=== PATIENT | male | born 1975 | race Hispanic/Latino ===

== ENCOUNTER 2017-02-28 13:11 | Emergency (ER) | payer SELFPAY ==
[2017-02-28] MEDS ORDERED: IBUPROFEN 600 MG TABLET ONE (13:50)
[2017-02-28 14:04] LABS: RAPID GROUP A STREP NEGATIVE (NEGATIVE)
== END 2017-02-28 14:19 | disposition home or self-care (01) ==
LOC: EDH 13:11
DX: J10.1 Influenza due to other identified influenza virus with other respiratory manifestations (principal); Z72.0 Tobacco use
CPT/HCPCS: 87804; 87880

== ENCOUNTER 2018-04-07 17:09 | Emergency (ER) | payer SELFPAY ==
[2018-04-07] MEDS ORDERED: KETOROLAC TROMETHAMINE 30MG/ML ONE (18:30)
== END 2018-04-07 19:17 | disposition home or self-care (01) ==
LOC: EDH 17:09
DX: S92.344A Nondisplaced fracture of fourth metatarsal bone, right foot, initial encounter for closed fracture (principal); W11.XXXA Fall on and from ladder, initial encounter; Y93.89 Activity, other specified; Y92.69 Other specified industrial and construction area as the place of occurrence of the external cause; Y99.8 Other external cause status
CPT/HCPCS: 29515; 73610; 73630; 96372; 99283; J1885

== ENCOUNTER 2018-04-08 08:31 | Emergency (ER) | payer SELFPAY ==
[2018-04-08] MEDS ORDERED: KETOROLAC TROMETHAMINE 60 MG/2 ML VIAL ONE (09:12)
[2018-04-08] MEDS ORDERED: CYCLOBENZAPRINE HCL 10 MG TABLET ONE (09:12)
== END 2018-04-08 09:57 | disposition home or self-care (01) ==
LOC: EDH 08:31
DX: S93.491A Sprain of other ligament of right ankle, initial encounter (principal); W18.39XA Other fall on same level, initial encounter; Y93.89 Activity, other specified; Y92.89 Other specified places as the place of occurrence of the external cause; Y99.8 Other external cause status
CPT/HCPCS: 96372; 99283; J1885

== ENCOUNTER 2018-09-25 01:27 | Emergency (ER) | payer OTHER ==
[2018-09-25] MEDS ORDERED: HYDROCODONE/ACETAMINOPHEN 5/325 MG TAB ONE (01:59)
[2018-09-25] MEDS ORDERED: PENICILLIN V POTASSIUM 500 MG TABLET ONE (01:59)
[2018-09-25] MEDS ORDERED: KETOROLAC TROMETHAMINE 60 MG/2 ML VIAL ONE (01:59)
== END 2018-09-25 02:27 | disposition home or self-care (01) ==
LOC: EDH 01:27
DX: K08.89 Other specified disorders of teeth and supporting structures (principal); Z72.0 Tobacco use
CPT/HCPCS: 96372; 99283; J1885

== ENCOUNTER 2018-11-27 04:34 | Emergency (ER) | payer SELFPAY ==
[2018-11-27 05:10] LABS: EOSINOPHILS % (AUTO) 0.2 % (0.0-8.0); HEMATOCRIT 39.4 % (42-54); LYMPHOCYTES % (AUTO) 19.6 % (21.0-51.0); MEAN CORPUSCULAR HEMOGLOBIN 30.9 pg (27.0-33.0); MEAN CORPUSCULAR VOLUME 88.3 fL (79-99); MONOCYTES % (AUTO) 7.2 % (3.0-13.0); PLATELET COUNT (AUTO) 215 K/uL (130-400); RED BLOOD CELL COUNT(AUTO) 4.46 MIL/uL (4.50-6.20); RED CELL DISTRIBUTION WIDTH 13.5 % (11.0-15.5); WHITE BLOOD COUNT (AUTO) 7.9 K/uL (4.8-10.8)
[2018-11-27 05:27] LABS: CREATININE 1.1 mg/dL (0.5-1.5); POTASSIUM 3.5 mmol/L (3.5-5.1)
[2018-11-27 05:32] LABS: ALBUMIN 3.2 g/dL (3.5-5.0); BILIRUBIN,TOTAL 0.5 mg/dL (0.2-1.0); TOTAL PROTEIN, SERUM 7.6 g/dL (6.0-8.3)
== END 2018-11-27 06:06 | disposition home or self-care (01) ==
LOC: EDH 04:34
DX: R50.9 Fever, unspecified (principal)
CPT/HCPCS: 36415; 80053; 83605; 85025; 87040; 87804

== ENCOUNTER 2018-12-01 09:02 | Emergency (ER) | payer SELFPAY ==
[2018-12-01] MEDS ORDERED: METHYLPREDNISOLONE SOD SUCC 125MG/2ML VIAL ONE (09:25)
[2018-12-01] MEDS ORDERED: DiphenhydrAMINE HCL 50 MG/ML VIAL ONE (09:25)
[2018-12-01] MEDS ORDERED: FAMOTIDINE/PF 20 MG/2 ML VIAL IV ONE (09:25)
== END 2018-12-01 10:39 | disposition home or self-care (01) ==
LOC: EDH 09:02
DX: T78.49XA Other allergy, initial encounter (principal); Z72.0 Tobacco use; X58.XXXA Exposure to other specified factors, initial encounter
CPT/HCPCS: 96374; 96375; 99284; J1200; J2930; J3490

== ENCOUNTER 2020-03-09 14:34 | Emergency (ER) | payer OTHER ==
[2020-03-09] MEDS ORDERED: LEVOFLOXACIN 500 MG/D5W 100 ML 100 ML ONE (15:03)
[2020-03-09] MEDS ORDERED: 0.9%NACL 1000ML 1,000 ML IV ONE (15:03)
[2020-03-09] MEDS ORDERED: ONDANSETRON 4MG INJ ONE (15:03)
[2020-03-09] MEDS ORDERED: ACETAMINOPHEN 325 MG TAB ONE (15:03)
[2020-03-09] MEDS ORDERED: ZOSYN 3.375GM+NS 50ML 50 ML IV ONE (15:03)
[2020-03-09 15:31] LABS: BASOPHILS % (AUTO) 0.4 % (0.0-5.0); EOSINOPHILS % (AUTO) 0.6 % (0.0-8.0); HEMATOCRIT 49.4 % (42-54); LYMPHOCYTES % (AUTO) 9.3 % (21.0-51.0); MEAN CORPUSCULAR HEMOGLOBIN 28.8 pg (27.0-33.0); MEAN CORPUSCULAR HGB CONC 33.6 g/dL (32.0-36.0); MEAN CORPUSCULAR VOLUME 85.8 fL (79-99); MONOCYTES % (AUTO) 6.6 % (3.0-13.0); NEUTROPHILS % (AUTO) 82.7 % (40.0-77.0); PLATELET COUNT (AUTO) 188 K/uL (130-400); RED BLOOD CELL COUNT(AUTO) 5.76 MIL/uL (4.50-6.20); RED CELL DISTRIBUTION WIDTH 12.5 % (11.0-15.5); WHITE BLOOD COUNT (AUTO) 11.3 K/uL (4.8-10.8)
[2020-03-09 15:44] LABS: CREATININE 1.4 mg/dL (0.5-1.5); POTASSIUM 3.8 mmol/L (3.5-5.1)
[2020-03-09 15:48] LABS: ALBUMIN 3.6 g/dL (3.5-5.0); BILIRUBIN,TOTAL 0.6 mg/dL (0.2-1.0); TOTAL PROTEIN, SERUM 8.2 g/dL (6.0-8.3)
[2020-03-09 15:58] LABS: APPEARANCE,URINE Cloudy (CLEAR); BILIRUBIN,URINE Small (NEGATIVE); COLOR,URINE Dark Yellow (YELLOW); GLUCOSE, URINE (UA) Negative (NEGATIVE); KETONES,URINE 15 mg/dL (NEGATIVE); LEUKOCYTE ESTERASE ,URINE Trace (NEGATIVE); NITRATE,URINE Negative (NEGATIVE); OCCULT BLOOD,URINE Negative (NEGATIVE); PROTEIN,URINE POS 1+ mg/dL (NEGATIVE)
[2020-03-09 16:15] LABS: RBC,URINE 0-1 /HPF (0-1); WBC,URINE 0-1 /HPF (0-1)
[2020-03-09 16:16] LABS: BACTERIA,URINE Few /HPF (None Seen); MUCUS,URINE Few LPF (None Seen); SQUAMOUS EPITHELIAL CELL,UR Rare /HPF (0-2)
== END 2020-03-09 18:05 | disposition home or self-care (01) ==
LOC: EDH 14:34
DX: A09 Infectious gastroenteritis and colitis, unspecified (principal); Z20.822 Contact with and (suspected) exposure to COVID-19; Z72.0 Tobacco use
CPT/HCPCS: 36415; 74176; 80053; 81001; 82150; 82550; 83605; 83690; 84484; 85025; 86140; 87040; 87426; 93005; 96365; 96366; 96368; 96375; 99285; J1956; J2405; J2543; J7030; U0003